=== PATIENT | male | born 1970 | race Caucasian/White ===

== ENCOUNTER 2018-12-31 12:08 | Emergency (ER) | payer BC, OTHER ==
[2018-12-31] MEDS ORDERED: HYDROMORPHONE HCL 2 MG/ML VIAL IVP ONE ×2 (12:32→15:02)
[2018-12-31] MEDS ORDERED: ONDANSETRON HCL IV 4 MG/2 ML VIAL IVP ONE (12:32)
[2018-12-31 12:47] LABS: BASO % 0.9 % (0-6); EOS % 0.7 % (0-6); GRAN % 72.5 % (47-80); HEMATOCRIT 41.7 % (42.0-52.0); HEMOGLOBIN 13.7 gm/dl (14.0-18.0); LYMPH % 18.4 % (16-45); MEAN CELL VOLUME 91.4 fl (81-97); MEAN CORPUSCULAR HGB CONC 32.9 g/dl (32-36); MEAN PLATELET VOLUME 9.5 fl (7.4-10.4); MONO % 7.5 % (0-9); PLATELET COUNT 280 K/uL (130-400); RED BLOOD COUNT 4.56 M/uL (4.40-5.70); RED CELL DISTRIBUTION WIDTH 12.7 % (11.5-14.5); WHITE BLOOD COUNT W/O DIFF 5.3 K/uL (4.2-12.2)
--- NOTE | 2018-12-31 12:49 | Emergency Department Record ---
History of Present Illness - General Chief complaint: Flank Pain Stated complaint: LOWER BACK PAIN/KIDNEY STONE Time Seen by Provider: 12/31/18 12:16 Source: Patient, Family Mode of Arrival: Ambulatory Limitations: No limitations - History of Present Illness Initial comments: The patient is here due to L lower back pain for 3 weeks that has been getting progressively worsening. The pain starts in the L lower back at the sciatic area and intermittently radiates down the back of the L leg. He denies any leg weakness or numbness but movement and bending does increase the pain. The patient also denies any bowel or bladder issues. He states he has a hx of chronic back pain similar to this but not quite as bad. The patient did stop his Suboxone 4 days ago due to being told he will need surgery for a kidney stone that was seen on a plain xray. Onset/Timin -: Week(s) Location: Left flank Severity: Moderate Severity scale (1-10): 9 Quality: Aching Consistency: Constant, Intermittent Improves with: None Worsens with: Movement - Related Data Home Medications Medication Instructions Recorded Confirmed Last Taken Ibuprofen [Motrin] 800 mg PO Q6H PRN 12/31/18 12/31/18 1 Day Ago ~12/30/18 Allergies Allergy/AdvReac Type Severity Reaction Status Date / Time Penicillins Allergy ANAPHYLAXIS Verified 12/31/18 12:21 Travel Screening - Travel/Exposure Within Last 30 Days Have you traveled within the last 30 days?: No - Travel/Exposure Within Last Year Have you traveled outside the [place] in the last year?: No - Additonal Travel Details Have you been exposed to anyone with a communicable illness?: No - Travel Symptoms Symptom Screening: None Review of Systems Constitutional: Denies: Chills, Fever Eyes: Denies: Eye discharge ENT: Denies: Congestion Respiratory: Denies: Cough, Dyspnea Past Medical History - SOCIAL HISTORY Smoking Status: Former smoker Alcohol Use: None Drug Use: None - RESPIRATORY Hx Respiratory Disorders: No - CARDIOVASCULAR Hx Cardio Disorders: No - NEURO Hx Neuro Disorders: Yes Hx Brain Tumor: Yes - GI Hx GI Disorders: Yes Hx Abdominal Pain: Yes - Hx Genitourinary Disorders: No - ENDOCRINE Hx Endocrine Disorders: No Hx Diabetes: No Hx Thyroid Disease: No - MUSCULOSKELETAL Hx Musculoskeletal Disorders: Yes Comment:: leg pain - PSYCH Hx Psych Problems: No - HEMATOLOGY/ONCOLOGY Hx Hematology/Oncology Disorders: No Family Medical History Any Significant Family History?: Yes Hx Alcohol Use: Father Hx Cancer: Mother Hx Depression: Father Physical Exam - General General Appearance: Alert, Oriented x3, Cooperative, Mild distress - Head Head exam: Atraumatic, Normocephalic - Eye Eye exam: Normal appearance, PERRL, EOMI - Neck Neck exam: Normal inspection, Full ROM. negative: Tenderness - Respiratory Respiratory exam: Normal lung sounds bilaterally. negative: Respiratory distress - Cardiovascular Cardiovascular Exam: Regular rate, Normal rhythm, Normal heart sounds - GI/Abdominal GI/Abdominal exam: Soft, Normal bowel sounds. negative: Tenderness - Extremities Extremities exam: Normal inspection, Normal capillary refill, Other (positive SLR L Leg at 45 degrees and positive SLR R at 60-70 degrees.). negative: Full ROM, Tenderness - Back Back exam: Reports: Normal inspection, Paraspinal tenderness (there is mild L lower lumbar L4-5 parapinal tenderness.). Denies: Vertebral tenderness - Neurological Neurological exam: Alert, Normal gait, Oriented X3. negative: Abnormal gait, Altered, Motor sensory deficit, Reflexes normal (The patellar reflexes are equal bilaterally but the L achilles reflex is mildly depressed compared to the R.) Course Vital Signs 12/31/18 12:10 Temperature 98.6 F Pulse Rate 79 Respiratory 20 Rate Blood Pressure 156/93 Pulse Ox 99 - Reevaluation(s) Reevaluation #1: The patient is doing a little better after the pain medicines. I did discuss the CT results with him and the need for F/U. 12/31/18 14:17 Reevaluation #2: The patient is doing better at this time but is still having pain. Due to the CT findings of a herniated disc and with the positive SLR signs and depressed L achilles reflex I do feel the patient needs an MRI of his lumbar area at this time. I explained that to the patient and he would [place] [facility] I then did discuss the case with Dr. Sullivan at [facility] [place] and he did accept the patient for an ER to ER transfer. 12/31/18 15:05 Medical Decision Making - Data Complexity MDM Data: Labs Ordered and/or Reviewed, X-Ray Ordered and/or Reviewed - Lab Data Result diagrams: 12/31/18 12:44 03/24/19 12:44 - Radiology Data Radiology results: Report reviewed (CT: Neg for ureter stone or hydro. There was bilateral nephrolithiasis. Possible new L disc protrusion at the L L5-S1 level.) Disposition Disposition: Transfer Clinical Impression: Sciatica of left side Disposition: Acute Care Hospital Transfer [place] [facility] For Transfer: MRI Accepting Physician: Billy Time Discussed w/Accepting Physician: 15:08 Condition: (2) Stable Additional Instructions: Please proceed directly to the [place] at [facility] [place] evaluation and a lumbar MRI. Forms: Patient Portal Access Time of Disposition: 15:08 Quality - Quality Measures Quality Measures: N/A - Blood Pressure Screening View Details: Yes Does Patient Have Any of the Following: No Blood Pressure Classification: Hypertensive Reading Systolic Measurement: 156 Diastolic Measurement: 93 Screening for High Blood Pressure: < First Hypertensive BP, F/U Documented > [ [id number]] First Hypertensive Follow-up Interventions: Referral to alternative/primary care provider.
[2018-12-31 12:57] LABS: BLOOD UREA NITROGEN 14 mg/dL (6-20); CREATININE 0.7 mg/dL (0.7-1.2); EST GLOMERULAR FILTRATION RATE > 60 mL/min
[2018-12-31 12:58] LABS: TOTAL PROTEIN 6.2 g/dL (6.6-8.7)
[2018-12-31 13:00] LABS: GLUCOSE,RANDOM 100 mg/dL (74-109)
[2018-12-31 13:02] LABS: ALT/SGPT 9 U/L (<41)
[2018-12-31 13:03] LABS: ALBUMIN 4.2 g/dL (4.0-5.0); ALKALINE PHOSPHATASE 70 U/L (40-129); AST/SGOT 15 U/L (10.0-50.0); BILIRUBIN,DIRECT < 0.2 mg/dL (0-0.3)
[2018-12-31] MEDS ORDERED: KETOROLAC 30 MG/ML VIAL IVP ONE (13:12)
[2018-12-31] MEDS ORDERED: 0.9 % SODIUM CHLORIDE 1,000 ML BAG IV ONE (13:25)
[2018-12-31 14:20] LABS: URINE APPEARANCE CLEAR; URINE BILIRUBIN NEGATIVE (NEGATIVE); URINE BLOOD NEGATIVE (NEGATIVE); URINE COLOR YELLOW; URINE GLUCOSE (UA) NEGATIVE (NEGATIVE); URINE KETONE NEGATIVE (NEGATIVE); URINE LEUKOCYTE ESTERASE NEGATIVE (NEGATIVE); URINE NITRITE NEGATIVE (NEGATIVE); URINE PROTEIN NEGATIVE (NEGATIVE); URINE UROBILINOGEN 0.2 E.U./dL (0.20 - 1.00)
== END 2018-12-31 15:52 | disposition short-term general hospital (02) ==
LOC: ER 12:08
DX: M51.26 Other intervertebral disc displacement, lumbar region (principal); M54.42 Lumbago with sciatica, left side; N20.0 Calculus of kidney
CPT/HCPCS: 74176; 80048; 80076; 81003; 85025; 96361; 96374; 96375; 99284; J1885; J2405; J7030